=== PATIENT | female | born 1960 | race Caucasian/White ===

== ENCOUNTER 2022-12-25 09:33 | Emergency (ER) | payer BC ==
[~2022-12-25] VITALS: Ht 170.2 cm; Wt 93.2 kg
[2022-12-25 09:34] VITALS: TEMP 97.5
[2022-12-25] MEDS ORDERED: ROXICODONE 55 MG/TAB PO (11:00)
[2022-12-25 12:05] VITALS: BP 151/94; PULSE 64
== END 2022-12-25 12:06 | disposition home or self-care (01) ==
LOC: COL.ER 09:33
DX: S82.402A Unspecified fracture of shaft of left fibula, initial encounter for closed fracture (principal); S93.401A Sprain of unspecified ligament of right ankle, initial encounter; W10.1XXA Fall (on)(from) sidewalk curb, initial encounter; Y92.481 Parking lot as the place of occurrence of the external cause
CPT/HCPCS: J1885